=== PATIENT | female | born 1960 | race Caucasian/White ===

== ENCOUNTER → 2016-12-15 | Day surgery (SDC) | payer SELFPAY ==
[~2016-12-15] MED LIST: BUPROPION XL300 MG PO; FETZIMA40 MG PO; INDERAL LA60 M1 PO; LAMICTAL ODT200 MG PO; LEVOXYL0.137 MG DOB; OMEPRAZOLE40 M1 PO; PROTONIX PO
--- NOTE | ~2016-12-15 | OR ---
Unit #: [id number] #: [id number] Patient: MITCH HAMMOND [id number] [address] [address] [id number] O MR#: [id number] NAME: MITCH HAMMOND ROOM: Date of Procedure: 12/15/2016 Admission Date: 12/15/2016 Surgeon: Pablo Chao M.D. : 1960 Attending Physician: Pablo Chao M.D. Primary Care Physician: Monroe Boyer M.D. OPERATIVE REPORT PREOPERATIVE DIAGNOSIS Gastric balloon. POSTOPERATIVE DIAGNOSIS Gastric balloon. PROCEDURE PERFORMED Removal of gastric balloon. ANESTHESIA General anesthesia. ESTIMATED BLOOD LOSS Minimal. IV FLUIDS 400 crystalloid. COMPLICATIONS None. INDICATIONS FOR PROCEDURE The patient is a 56-year-old lady, who has done very well with gastric balloon. She presents for removal. DESCRIPTION OF PROCEDURE The patient was taken to the operating theater and placed in the supine position. General anesthesia was induced. She was then placed in left lateral decubitus position. EGD scope was passed under direct vision into the esophagus. Esophagus was grossly normal. Stomach showed some mild retained gastric contents. This was aspirated dry. I then punctured the gastric balloon with the catheter and suctioned all fluid free. This was then grasped and then removed via the esophagus under direct vision. The patient tolerated the procedure well and was sent to the recovery room in good condition. Dictated by... Pablo Chao M.D. JNO/robertol Unit #: [id number] #: [id number] Patient: MITCH HAMMOND TD: 12/15/2016 20:24 JOB #: [id number] OPERATIVE REPORT Page 1 of 1 X Pablo Chao MD X PROCEDURE OPERATIVE NOTE
== END | disposition home or self-care (01) ==
LOC: CSUR 08:15
DX: T18.2XXA Foreign body in stomach, initial encounter (principal); E03.9 Hypothyroidism, unspecified; K21.9 Gastro-esophageal reflux disease without esophagitis; F17.210 Nicotine dependence, cigarettes, uncomplicated; Z88.0 Allergy status to penicillin; Z79.899 Other long term (current) drug therapy; Z90.49 Acquired absence of other specified parts of digestive tract; Z90.710 Acquired absence of both cervix and uterus; Z98.51 Tubal ligation status; Z98.890 Other specified postprocedural states
CPT/HCPCS: J0330; J1100; J2250; J2765; J3010